=== PATIENT | female | born 1945 | race Caucasian/White ===

== ENCOUNTER 2019-11-20 14:35 | Outpatient (CLI) | payer MEDICARE, SELFPAY ==
--- NOTE | 2019-11-20 14:45 | XRR_ITS ---
PROCEDURE INFORMATION: Exam: XR Right Hip with Pelvis when Performed Exam date and time: 11/20/2019 2:45 PM Age: 74 years old Clinical indication: Hip pain; Right hip; Prior surgery; Surgery date: 6+ months; Surgery type: Hyat; Patient HX: C/O R hip/upper leg pain x 3 days denies injury; Additional info: Right hip, leg pain TECHNIQUE: Imaging protocol: XR Right hip with pelvis when performed. Views: 2 or 3 views. COMPARISON: No relevant prior studies available. FINDINGS: Bones/joints: The bone density is appropriate. No acute fracture or dislocation. No bony destructive changes. Soft tissues: No foreign body. No gas in the soft tissues. Other findings: No periosteal reaction. No osteomyelitis. XR/XR hip RT 2-3V wo/w pel* [id number] IMPRESSION: No acute bony abnormality.
== END 2019-11-20 14:36 | disposition home or self-care (01) ==
LOC: RAD 14:37
PROVIDERS: Family Provider Internal Medicine Pulmonary Disease; PCP Internal Medicine Pulmonary Disease; Visit Provider Emergency Medicine
DX: M25.551 Pain in right hip (principal)
CPT/HCPCS: 73502

== ENCOUNTER → 2022-01-23 09:27 | Outpatient (BNVA) | payer MEDICARE, SELFPAY | PROVIDERS: Family Provider Internal Medicine Pulmonary Disease; PCP Internal Medicine Pulmonary Disease; Visit Provider Nurse Practitioner Family | DX: R68.89 Other general symptoms and signs (principal); J11.1 Influenza due to unidentified influenza virus with other respiratory manifestations | CPT/HCPCS: 87426 ==